=== PATIENT | female | born 1945 | race Caucasian/White ===

== ENCOUNTER 2018-02-17 10:08 | Emergency (ER) | payer MEDICARE, OTHER ==
--- NOTE | 2018-02-17 11:45 | EDM.PDOC ---
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, on Cellcept intermittent sob at home, lives with , on O2 at home, 5 l/min at home, PO 100% here on 2 l/min NC saw Dr Ortega several days ago for nasal congestion, tx with montelukast, only took 1 tab, thinks it made her more sob BANKS walking across room, particularly if she is in a hurry to get to the bathroom slept in a chair the last several nights, could breath better no cp, no f/c/d, no n/v, no cough last labs here 3y ago with BNP [address] 8m ago with emphysematous changes with interstitial fibrosis, bronchiectasis and pneumonia vs severe bronchitis at the bases no food or drink today except 1/2 cup coffee, up at 7a PCP Yue Bower, has 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 processing technician (Sky) and manager personal today EKG wnl with SR 65, CBC neg - Related Data Allergies Allergy/AdvReac Type Severity Reaction Status Date / Time morphine AdvReac Mild Rash Verified 02/17/18 10:58 Home Meds: Home Meds Levothyroxine 300 mcg PO ACBREAKFAST 09/04/15 [History] Losartan Potassium [Cozaar] 100 mg PO DAILY 09/04/15 [History] Mycophenolate Mofetil [Cellcept] 500 mg PO BID 09/04/15 [History] Omeprazole 20 mg PO BID 09/04/15 [History] Venlafaxine HCl [Venlafaxine ER] 150 mg PO DAILY 09/04/15 [History] Triamterene/Hydrochlorothiazid [Triamterene-HCTZ 37.5-25 MG] 1 cap PO DAILY 04/25 [History] traZODone 50 mg PO BEDTIME 11/16/16 [History] Azithromycin [Zithromax] 250 mg PO DAILY #6 tab 02/17/18 [Rx] Triamcinolone Acetonide [Nasacort] 1 inh NASBOTH DAILY 02/17/18 [History] Venlafaxine HCl [Venlafaxine ER] 75 mg PO DAILY 02/17/18 [History] predniSONE 20 mg PO DAILY #5 tab 02/17/18 [Rx] Past Medical History HEENT History: Reports: Cataract, Impaired Vision, Macular Degeneration Cardiovascular History: Reports: Hypertension Respiratory History: Reports: Pulmonary Fibrosis, SOB, Other (See Below) Other Respiratory History: PULMONARY HYPERTENSION Gastrointestinal History: Reports: Hiatal Hernia Musculoskeletal History: Reports: Arthritis, Connective Tissue Disease, Osteoporosis Psychiatric History: Reports: Depression Endocrine/Metabolic History: Reports: Hypothyroidism Immunologic History: Reports: Other (See Below) Other Immunologic History: GRAVES DISEASE AND INTERSTITIAL LUNG DISEASE Dermatologic History: Reports: Other (See Below) Other Dermatologic History: ROSACEA - Past Surgical History Female Surgical History: Reports: Other (See Below) Social & Family History - Caffeine Use Caffeine Use: Reports: Coffee ED ROS GENERAL - Review of Systems Review Of Systems: See Below Constitutional: Reports: No Symptoms HEENT: Reports: No Symptoms Respiratory: Reports: Shortness of Breath. Denies: Cough Cardiovascular: Reports: No Symptoms. Denies: Chest Pain Endocrine: Reports: No Symptoms GI/Abdominal: Reports: No Symptoms : Reports: No Symptoms Musculoskeletal: Reports: No Symptoms Skin: Reports: No Symptoms Neurological: Reports: No Symptoms Psychiatric: Reports: No Symptoms Hematologic/Lymphatic: Reports: No Symptoms Immunologic: Reports: No Symptoms ED EXAM, GENERAL - Physical Exam Exam: See Below Exam Limited By: No Limitations General Appearance: Alert, WD/WN, No Apparent Distress Eye Exam: Bilateral Eye: Normal Inspection Ears: Normal External Exam, Hearing Grossly Normal Nose: Normal Inspection, Normal Mucosa, No Blood Throat/Mouth: Normal Inspection, Normal Lips, Normal Teeth, Normal Gums, Normal Oropharynx, Normal Voice, No Airway Compromise Head: Atraumatic, Normocephalic Neck: Normal Inspection, Supple, Non-Tender, Full Range of Motion Respiratory/Chest: Other (good AE, no purse lips, no retractions, no accessory muscles, a few scattered crackles at bases, no cough, no dyspnea, talks in 10- word sentences, appears comfortable) Cardiovascular: Regular Rate, Rhythm, No Edema, No Gallop, No Rub, Other (2/6 LAQUITA at LSB, quiet precordium) GI/Abdominal: Normal Bowel Sounds, Soft, Non-Tender, No Organomegaly, No Distention, No Mass Back Exam: Normal Inspection, Full Range of Motion, NT Extremities: Normal Inspection, Normal Range of Motion, Non-Tender, No Pedal Edema Neurological: Alert, Oriented, CN II-XII Intact, Normal Cognition, Normal Gait, No Motor/Sensory Deficits Psychiatric: Normal Affect, Normal Mood Skin Exam: Warm, Dry, Intact, Normal Color, No Rash Lymphatic: No Adenopathy Course - Vital Signs Last Recorded V/S: Last Vital Signs Temp 36.4 C 02/17/18 10:08 Pulse 67 02/17/18 11:21 Resp 18 02/17/18 11:21 BP 89/72 L 02/17/18 11:21 Pulse Ox 100 02/17/18 11:21 - Orders/Labs/Meds Orders: Active Orders 24 hr Category Date Time Status Oxygen Therapy Adult [Oxygen Therapy, ED] [RC] Care 02/17/18 10:08 Active ASDIRECTED Chest 2V [CR] Stat Exams 02/17/18 10:56 Taken EKG 12 Lead [EK] Routine Ther 02/17/18 10:58 Ordered Labs: Laboratory Tests 02/17/18 02/17/18 02/17/18 Range/Units 11:15 11:15 11:15 WBC 6.6 (4.5-12.0) X10-3/uL RBC 4.31 (3.23-5.20) x10(6)uL Hgb 13.0 (11.5-15.5) g/dL Hct 39.2 (30.0-51.3) % MCV 90.9 (80-96) fL MCH 30.2 (27.7-33.6) pg MCHC 33.2 (32.2-35.4) g/dL RDW 12.3 (11.5-15.5) % Plt Count 358 (125-369) X10(3)uL MPV 7.7 (7.4-10.4) fL Neut % (Auto) 71.8 (46-82) % Lymph % (Auto) 17.6 (13-37) % [place] % (Auto) 7.7 (4-12) % Eos % (Auto) 2 (1.0-5.0) % Baso % (Auto) 1 (0-2) % Neut # (Auto) 4.7 (1.6-8.3) # Lymph # (Auto) 1.2 (0.6-5.0) # [place] # (Auto) 0.5 (0.0-1.3) # Eos # (Auto) 0.2 (0.0-0.8) # Baso # (Auto) 0.0 (0.0-0.2) # Sodium 140 (135-145) mmol/L Potassium 3.9 (3.5-5.3) mmol/L Chloride 104 (100-110) mmol/L Carbon Dioxide 28 (21-32) mmol/L BUN 11 (7-18) mg/dL Creatinine 0.8 (0.55-1.02) mg/dL Est Cr Clr Drug Dosing TNP Estimated GFR (MDRD) > 60 (>60) BUN/Creatinine Ratio 13.8 (9-20) Glucose 102 (80-116) mg/dL Calcium 8.9 (8.6-10.2) mg/dL Total Bilirubin 0.5 (0.1-1.3) mg/dL AST 15 (5-25) IU/L ALT 19 (12-36) U/L Alkaline Phosphatase 65 (56-112) IU/L Troponin I < 0.017 L (<0.017-0.056) ng/mL C-Reactive Protein 0.4 L (0.5-0.9) mg/dL NT-Pro-B Natriuret Pep 532 H (<=125) pg/mL Total Protein 7.4 (6.0-8.0) g/dL Albumin 3.8 (3.2-4.6) g/dL Globulin 3.6 g/dL Albumin/Globulin Ratio 1.1 - Re-Assessments/Exams Free Text/Narrative Re-Assessment/Exam: 02/17/18 11:59 labs, CxR, EKG are all neg, BNP 532 (4.3x ULN) is c/w her R sided HF from her pul fibrosis pt may have a flare of her known bronchiectasis (seen on CT) and will give a trial of Z-Carlyle and pred 20/d x 5d [place] and has been keeping windows closed when farmers have been spraying the correia Departure - Departure Time of Disposition: 12:01 Disposition: Home, Self-Care 01 Condition: Good Clinical Impression: Bronchiectasis with (acute) exacerbation - Discharge Information Prescriptions: Azithromycin [Zithromax] 250 mg PO DAILY #6 tab predniSONE 20 mg PO DAILY #5 tab Instructions: Bronchiectasis Referrals: Christi Sandhu NP [Primary Care Provider] - Forms: ED Department Discharge Additional Instructions: For possible infection, take azithromycin 250 mg 2 tabs today, then 1 tab daily for 4 days. To open up your airways, take prednisone 20 mg 1 tab daily for 5 days. See your doctor in 5 days. Return to ED if you feel worse. - My Orders Last 24 Hours: My Active Orders 02/17/18 10:08 Oxygen Therapy Adult [Oxygen Therapy, ED] [] ASDIRECTED 02/17/18 10:56 Chest 2V [CR] Stat 02/17/18 10:58 EKG 12 Lead [EK] Routine - Assessment/Plan Last 24 Hours: My Active Orders 02/17/18 10:08 Oxygen Therapy Adult [Oxygen Therapy, ED] [] ASDIRECTED 02/17/18 10:56 Chest 2V [CR] Stat 02/17/18 10:58 EKG 12 Lead [EK] Routine
[2018-02-17 12:23] VITALS: BP 121/51
--- NOTE | 2018-02-17 12:45 | CR ---
INDICATION: Short of breath. CHEST: PA and lateral views of the chest 02/17/2018 were compared with 2014 and revealed an appearance of infiltration posteriorly, most likely in the left lower lobe but possibly minimally in the right lower lobe, compatible with patchy pneumonia - no definite pleuritis. No gross consolidating pneumonia or significant effusion could be identified. The heart is enlarged. The aorta is slightly tortuous with calcification distal portion. Diminished bone density is suggested, compatible with osteoporosis - correlate clinically. There is a mild degree of hyperaeration with prominent AP diameter, raising question of COPD, along with slightly flattened diaphragm leaf on the right. IMPRESSION: 1. Findings suggest patchy bibasilar pneumonia but should be correlated clinically. Progressive fibrosis could be present. 2. ASHD with cardiomegaly. No definite CHF. 3. Diminished bone density suggesting osteoporosis. 4. Suggestion of COPD - correlate clinically. MTDD
== END 2018-02-17 12:15 | disposition home or self-care (01) ==
LOC: FB.ED 10:08
DX: J47.1 Bronchiectasis with (acute) exacerbation (principal); I10 Essential (primary) hypertension; Z79.899 Other long term (current) drug therapy; Z88.5 Allergy status to narcotic agent
CPT/HCPCS: 36415; 71046; 80053; 83880; 84484; 85025; 86140; 93005; 99285

== ENCOUNTER 2019-02-21 11:37 | Observation (INO) | payer MEDICARE, OTHER ==
[2019-02-21] MEDS: Sodium Chloride 0.9% 10 ML Syringe FLUSH PRN ×2 (13:15→15:21)
--- NOTE | 2019-02-21 13:27 | EDM.PDOC ---
ED HPI GENERAL MEDICAL PROBLEM - General Chief Complaint: General Stated Complaint: SOB COUGH Time Seen by Provider: 02/21/19 12:53 Source of Information: Reports: Patient History Limitations: Reports: No Limitations - History of Present Illness INITIAL COMMENTS - FREE TEXT/NARRATIVE: 73-year-old female with history of interstitial lung disease, atrial fibrillation on Coumadin and CHF who reports a 6 pound weight gain since last week, increased swelling in both ankles and feet and the need to increase her oxygen from 3 L/m to 4 L/m via nasal cannula over the past 2-3 days. Apparently 2 days ago she increased her Bumex to 2 mg a day and has had good urine output but her symptoms have not improved otherwise. She was seen by the home health nurses and advised to come in for evaluation. She also reports a tightness feeling in her chest with activity and increase in her shortness of breath with activity as well. No nausea or vomiting. No fevers or chills. No abdominal pain. She reports that she has been eating and drinking normally. She has no pain. She rates her pain as a 0/10. There are no other associated signs or symptoms. There are no other modifying factors. 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: Other (see below) (Has had increase in her Bumex over the past 2 days with no apparent relief.) - Related Data Allergies Allergy/AdvReac Type Severity Reaction Status Date / Time No Known Allergies Allergy Verified 02/21/19 12:31 Home Meds: Home Meds Levothyroxine 200 mcg PO ACBREAKFAST 09/04/15 [History] Omeprazole 20 mg PO WITHDINNER 09/04/15 [History] traZODone 100 mg PO BEDTIME 11/16/16 [History] Triamcinolone Acetonide [Nasacort] 1 inh NASBOTH DAILY PRN 02/17/18 [History] Bumetanide 2 mg PO WITHDINNER 02/21/19 [History] Cholecalciferol (Vitamin D3) [Vitamin D3] 2,000 unit PO DAILY 02/21/19 [History] Levothyroxine 75 mcg PO ACBREAKFAST 02/21/19 [History] PARoxetine [Paxil] 20 mg PO BEDTIME 02/21/19 [History] Sulfamethoxazole/Trimethoprim [Sulfamethoxazole-Tmp Ds Tablet] 1 each PO MOWEFR@ 1800 02/21/19 [History] Warfarin Sodium [Jantoven] 1.25 mg PO WITHDINNER 02/21/19 [History] predniSONE 20 mg PO WITHDINNER 02/21/19 [History] Past Medical History HEENT History: Reports: Cataract, Impaired Vision, Macular Degeneration Cardiovascular History: Reports: Afib, Heart Failure, Hypertension Respiratory History: Reports: Pulmonary Fibrosis, SOB, Other (See Below) Other Respiratory History: PULMONARY HYPERTENSION; patient is on oxygen therapy at 3 L/m via nasal cannula normally but has increased to 4 L/m via nasal cannula over the past 3 days. Gastrointestinal History: Reports: Hiatal Hernia Musculoskeletal History: Reports: Arthritis, Connective Tissue Disease, Osteoporosis Psychiatric History: Reports: Depression Endocrine/Metabolic History: Reports: Hypothyroidism Hematologic History: Reports: Anticoagulation Therapy Immunologic History: Reports: Other (See Below) Other Immunologic History: GRAVES DISEASE AND INTERSTITIAL LUNG DISEASE Dermatologic History: Reports: Other (See Below) Other Dermatologic History: ROSACEA - Past Surgical History HEENT Surgical History: Reports: Cataract Surgery Cardiovascular Surgical History: Reports: Other (See Below) (Pain stripping of right lower extremity) Female Surgical History: Reports: Other (See Below) (Bladder suspension surgery) Social & Family History - Tobacco Use Smoking Status *Q: Never Smoker - Caffeine Use Caffeine Use: Reports: Coffee - Alcohol Use Alcohol Use History: Yes Alcohol Use Frequency: Weekly (2-3 times a week, 1-2 drinks) - Living Situation & Occupation Living situation: Reports: Alone Occupation: Retired ED ROS GENERAL - Review of Systems Review Of Systems: See Below Constitutional: Reports: No Symptoms HEENT: Reports: No Symptoms Respiratory: Reports: Shortness of Breath, Cough Cardiovascular: Reports: Lightheadedness Endocrine: Reports: Fatigue GI/Abdominal: Reports: No Symptoms : Reports: No Symptoms Musculoskeletal: Reports: Other (Bilateral ankle and foot swelling) Skin: Reports: No Symptoms Neurological: Reports: No Symptoms Hematologic/Lymphatic: Reports: Easy Bleeding, Easy Bruising, Other (Patient chronically anticoagulated on Coumadin.) ED EXAM, GENERAL - Physical Exam Exam: See Below Exam Limited By: No Limitations General Appearance: Alert, WD/WN, No Apparent Distress Eye Exam: Bilateral Eye: EOMI, Normal Inspection, PERRL Ears: Normal External Exam, Hearing Grossly Normal Nose: Normal Inspection, Normal Mucosa, No Blood Throat/Mouth: Normal Inspection, Normal Lips, Normal Teeth, Normal Gums, Normal Oropharynx, Normal Voice, No Airway Compromise Head: Atraumatic, Normocephalic Neck: Normal Inspection, Supple, Non-Tender, Full Range of Motion Respiratory/Chest: No Respiratory Distress, No Accessory Muscle Use, Crackles ( Bilaterally) Cardiovascular: Normal Peripheral Pulses, No JVD, Irregularly Irregular Peripheral Pulses: 2+: Radial (L), Radial (R) GI/Abdominal: Normal Bowel Sounds, Soft, Non-Tender, No Organomegaly, No Distention, No Abnormal Bruit, No Mass Back Exam: Normal Inspection Extremities: Normal Inspection, Normal Range of Motion, Non-Tender, Normal Capillary Refill, Pedal Edema Neurological: Alert, Oriented, CN II-XII Intact, Normal Cognition, No Motor/ Sensory Deficits Psychiatric: Normal Affect Skin Exam: Warm, Dry, Intact, Normal Color, No Rash Lymphatic: No Adenopathy EKG INTERPRETATION EKG Date: 02/21/19 Time: 13:20 Rhythm: A-Fib Rate (Beats/Min): 86 [place]: LAD-Left [place] Deviation P-Wave: Absent QRS: Normal ST-T: Other (Nonspecific ST-T changes) QT: Prolonged Comparison: Change From Previous EKG (A. fib is new from EKG performed on 2017, however patient has history of recent onset A. fib and is chronically anticoagulated on Coumadin for this.) EKG Interpretation Comments: Atrial fibrillation with a controlled rate of 86. There is left axis deviation. There is nonspecific ST-T changes throughout. There is a prolonged QTC. Course - Vital Signs Last Recorded V/S: Last Vital Signs Temp 36.7 C 02/21/19 15:46 Pulse 82 02/21/19 15:46 Resp 18 02/21/19 15:46 BP 109/54 L 02/21/19 15:46 Pulse Ox 100 02/21/19 16:00 - Orders/Labs/Meds Orders: Active Orders 24 hr Category Date Time Status Chest 2V [CR] Stat Exams 02/21/19 13:12 Taken Sodium Chloride 0.9% [Saline Flush] Med 02/21/19 13:10 Active 10 ml FLUSH ASDIRECTED PRN Peripheral IV Insertion Adult [OM.PC] Routine Oth 02/21/19 13:10 Ordered EKG 12 Lead [EK] Routine Ther 02/21/19 13:10 Stop Req Medication Orders Sodium Chloride (Saline Flush) 10 ml FLUSH ASDIRECTED PRN PRN Reason: Keep Vein Open Last Admin: 02/21/19 15:21 Dose: 10 ml Labs: Laboratory Tests 02/21/19 02/21/19 02/21/19 Range/Units 13:35 13:35 13:35 WBC 11.3 (4.5-12.0) X10-3/uL RBC 4.26 (3.23-5.20) x10(6)uL Hgb 13.1 (11.5-15.5) g/dL Hct 39.1 (30.0-51.3) % MCV 91.7 (80-96) fL MCH 30.8 (27.7-33.6) pg MCHC 33.6 (32.2-35.4) g/dL RDW 13.0 (11.5-15.5) % Plt Count 268 (125-369) X10(3)uL MPV 7.3 L (7.4-10.4) fL Neut % (Auto) 71.7 (46-82) % Lymph % (Auto) 18.2 (13-37) % [place] % (Auto) 5.7 (4-12) % Eos % (Auto) 3 (1.0-5.0) % Baso % (Auto) 2 (0-2) % Neut # (Auto) 8.1 (1.6-8.3) # Lymph # (Auto) 2.1 (0.6-5.0) # [place] # (Auto) 0.6 (0.0-1.3) # Eos # (Auto) 0.3 (0.0-0.8) # Baso # (Auto) 0.2 (0.0-0.2) # PT 23.6 H (8.7-11.1) INR 2.45 H (0.89-1.13) POC VBG pH (7.31-7.41) POC VBG pCO2 (41-51) mmHG POC VBG HCO3 (23-28) mmol/L POC VBG Total CO2 (24-29) mmol/L POC VBG Base Excess (-2-3) mmol/L Sodium 143 (135-145) mmol/L Potassium 3.0 L (3.5-5.3) mmol/L Chloride 103 (100-110) mmol/L Carbon Dioxide 35 H (21-32) mmol/L BUN 20 H (7-18) mg/dL Creatinine 1.0 (0.55-1.02) mg/dL Est Cr Clr Drug Dosing 36.53 mL/min Estimated GFR (MDRD) 55 L (>60) BUN/Creatinine Ratio 20.0 (9-20) Glucose 82 (80-116) mg/dL Calcium 8.3 L (8.6-10.2) mg/dL Total Bilirubin 0.5 (0.1-1.3) mg/dL AST 18 D (5-25) IU/L ALT 24 D (12-36) U/L Alkaline Phosphatase 63 (56-112) IU/L Troponin I (<0.017-0.056) ng/mL NT-Pro-B Natriuret Pep (<=125) pg/mL Total Protein 5.8 L (6.0-8.0) g/dL Albumin 3.0 L (3.2-4.6) g/dL Globulin 2.8 g/dL Albumin/Globulin Ratio 1.1 02/21/19 02/21/19 Range/Units 13:35 13:35 WBC (4.5-12.0) X10-3/uL RBC (3.23-5.20) x10(6)uL Hgb (11.5-15.5) g/dL Hct (30.0-51.3) % MCV (80-96) fL MCH (27.7-33.6) pg MCHC (32.2-35.4) g/dL RDW (11.5-15.5) % Plt Count (125-369) X10(3)uL MPV (7.4-10.4) fL Neut % (Auto) (46-82) % Lymph % (Auto) (13-37) % [place] % (Auto) (4-12) % Eos % (Auto) (1.0-5.0) % Baso % (Auto) (0-2) % Neut # (Auto) (1.6-8.3) # Lymph # (Auto) (0.6-5.0) # [place] # (Auto) (0.0-1.3) # Eos # (Auto) (0.0-0.8) # Baso # (Auto) (0.0-0.2) # PT (8.7-11.1) INR (0.89-1.13) POC VBG pH 7.34 (7.31-7.41) POC VBG pCO2 61.3 H (41-51) mmHG POC VBG HCO3 33.4 H (23-28) mmol/L POC VBG Total CO2 35 H (24-29) mmol/L POC VBG Base Excess 8 H (-2-3) mmol/L Sodium (135-145) mmol/L Potassium (3.5-5.3) mmol/L Chloride (100-110) mmol/L Carbon Dioxide (21-32) mmol/L BUN (7-18) mg/dL Creatinine (0.55-1.02) mg/dL Est Cr Clr Drug Dosing mL/min Estimated GFR (MDRD) (>60) BUN/Creatinine Ratio (9-20) Glucose (80-116) mg/dL Calcium (8.6-10.2) mg/dL Total Bilirubin (0.1-1.3) mg/dL AST (5-25) IU/L ALT (12-36) U/L Alkaline Phosphatase (56-112) IU/L Troponin I < 0.017 L (<0.017-0.056) ng/mL NT-Pro-B Natriuret Pep 2173 H* (<=125) pg/mL Total Protein (6.0-8.0) g/dL Albumin (3.2-4.6) g/dL Globulin g/dL Albumin/Globulin Ratio Meds: Medications Generic Name Dose Route Start Last Admin Trade Name Freq PRN Reason Stop Dose Admin Sodium Chloride 10 ml 02/21/19 13:10 02/21/19 15:21 Saline Flush FLUSH 10 ml ASDIRECTED PRN Administration Keep Vein Open Discontinued Medications Generic Name Dose Route Start Last Admin Trade Name Eleuterio PRN Reason Stop Dose Admin Furosemide 40 mg 02/21/19 15:12 02/21/19 15:21 Lasix IVPUSH 02/21/19 15:13 40 mg NOW ONE Administration Potassium Chloride 40 meq 02/21/19 15:12 02/21/19 15:20 Potassium Chloride Solution PO 02/21/19 15:13 40 meq ONETIME ONE Administration Potassium Chloride Confirm 02/21/19 15:23 02/21/19 16:03 Potassium Chloride Solution Administered 02/21/19 15:24 Not Given Dose 20 meq .ROUTE .[facility] ONE - Radiology Interpretation Free Text/Narrative:: chest x-ray shows increased pulmonary vascularity/decompensated CHF. - Re-Assessments/Exams Free Text/Narrative Re-Assessment/Exam: 02/21/19 15:41: Patient's chest x-ray shows evidence of decompensated CHF. Her signs and symptoms support this as well. This is in spite of the fact that she had had increase in her Bumex as an outpatient with worsening rather than improving symptoms. She has failed outpatient management of this and will need admission for IV diuresis. She will need at least a 2 midnight hospital stay to accomplish this plan of care. She was given Lasix 40 mg IV and she was also give potassium 40 mg by mouth for her low potassium to begin this treatment plan. I have discussed the patient's case with Dr. Garcia and he will admit the patient. I placed interim admission orders. I discussed this with the patient and she is in agreement with the plans for admission. Departure - Departure Time of Disposition: 15:45 Disposition: Admitted As Inpatient 67 Condition: Fair Clinical Impression: Acute decompensated heart failure, Hypokalemia, Failure of outpatient treatment - Discharge Information - My Orders Last 24 Hours: My Active Orders 02/21/19 13:10 Sodium Chloride 0.9% [Saline Flush] 10 ml FLUSH ASDIRECTED PRN Peripheral IV Insertion Adult [OM.PC] Routine EKG 12 Lead [EK] Routine 02/21/19 13:12 Chest 2V [CR] Stat - Assessment/Plan Last 24 Hours: My Active Orders 02/21/19 13:10 Sodium Chloride 0.9% [Saline Flush] 10 ml FLUSH ASDIRECTED PRN Peripheral IV Insertion Adult [OM.PC] Routine EKG 12 Lead [EK] Routine 02/21/19 13:12 Chest 2V [CR] Stat
[2019-02-21] MEDS ORDERED: Potassium Chloride 10% 20 MEQ/15 ML Soln 15 ML UD Cup PO ONE (15:12)
[2019-02-21] MEDS ORDERED: Furosemide 40 MG/4 ML VIAL IVPUSH ONE (15:12)
[2019-02-21] MEDS ORDERED: Potassium Chloride 10% 20 MEQ/15 ML Soln 15 ML UD Cup ONE (15:23)
[2019-02-21] MEDS ORDERED: Fluticasone Propionate Nasal Spray 16 GM Bottle NASBOTH PRN (17:45)
--- NOTE | 2019-02-21 17:50 | PCM.HP ---
H&P History of Present Illness - General Date of Service: 02/21/19 Admit Problem/Dx: Admission Diagnosis/Problem Admission Diagnosis/Problem Congestive heart failure Source of Information: Patient History Limitations: Reports: No Limitations - History of Present Illness Initial Comments - Free Text/Narative: This is a 73-year-old female patient with a history of CHF, atrial fibrillation , initial lung disease, pulmonary hypertension with chronic oxygen 3 L a day. She was in the hospital one month ago was diagnosed with atrial fib. Says since a little swelling in the last week she's had rubor shortness of breath and leg swelling in her legs. She is on Bumex currently. She called INR clinic and they asked her how much weight she is again this was 6 pounds so she was sent to ER. Since she was short of breath she was admitted. She is current on chronic oxygen. She has a cough when her fluid is high and it is at this time. She denies wheezing, fevers, chills, ear pain, sore throat. She denies chest pain but says her chest feels a little funny. - Related Data Allergies/Adverse Reactions: Allergies Allergy/AdvReac Type Severity Reaction Status Date / Time No Known Allergies Allergy Verified 02/21/19 12:31 Home Medications: Home Meds Levothyroxine 200 mcg PO ACBREAKFAST 09/04/15 [History] Omeprazole 20 mg PO WITHDINNER 09/04/15 [History] traZODone 100 mg PO BEDTIME 11/16/16 [History] Triamcinolone Acetonide [Nasacort] 1 inh NASBOTH DAILY PRN 02/17/18 [History] Bumetanide 2 mg PO WITHDINNER 02/21/19 [History] Cholecalciferol (Vitamin D3) [Vitamin D3] 2,000 unit PO DAILY 02/21/19 [History] Ketorolac [Acular 0.5% Ophth Soln] 1 drop EYERT TID 02/21/19 [History] Levothyroxine 75 mcg PO ACBREAKFAST 02/21/19 [History] Multivitamin with Minerals [Hair, Skin and Nails] 1 tab PO DAILY 02/21/19 [ History] Ofloxacin [Ocuflox 0.3% Ophth Soln] 1 drop EYERT TID 02/21/19 [History] PARoxetine [Paxil] 20 mg PO BEDTIME 02/21/19 [History] Sulfamethoxazole/Trimethoprim [Sulfamethoxazole-Tmp Ds Tablet] 1 each PO MOWEFR@ 1800 02/21/19 [History] Warfarin Sodium [Jantoven] 1.25 mg PO WITHDINNER 02/21/19 [History] predniSONE 20 mg PO WITHDINNER 02/21/19 [History] prednisoLONE acetate [Pred Forte 1% Ophth Susp] 1 drop EYERT TID 02/21/19 [ History] Past Medical History HEENT History: Reports: Cataract, Impaired Vision, Macular Degeneration Cardiovascular History: Reports: Afib, Heart Failure, Hypertension Other Cardiovascular History: HEART CATHETERIZATION Respiratory History: Reports: Pulmonary Fibrosis, SOB, Other (See Below) Other Respiratory History: PULMONARY HYPERTENSION; patient is on oxygen therapy at 3 L/m via nasal cannula normally but has increased to 4 L/m via nasal cannula over the past 3 days. Gastrointestinal History: Reports: Hiatal Hernia Musculoskeletal History: Reports: Arthritis, Connective Tissue Disease, Osteoporosis Psychiatric History: Reports: Depression Endocrine/Metabolic History: Reports: Hypothyroidism Hematologic History: Reports: Anticoagulation Therapy Immunologic History: Reports: Other (See Below) Other Immunologic History: GRAVES DISEASE AND INTERSTITIAL LUNG DISEASE Dermatologic History: Reports: Other (See Below) Other Dermatologic History: ROSACEA - Past Surgical History HEENT Surgical History: Reports: Cataract Surgery Cardiovascular Surgical History: Reports: Other (See Below) (Pain stripping of right lower extremity) Female Surgical History: Reports: Other (See Below) (Bladder suspension surgery) Social & Family History - Family History Family Medical History: Noncontributory - Tobacco Use Smoking Status *Q: Never Smoker Second Hand Smoke Exposure: No - Caffeine Use Caffeine Use: Reports: Coffee - Recreational Drug Use Recreational Drug Use: No - Living Situation & Occupation Living situation: Reports: Alone Occupation: Retired H&P Review of Systems - Review of Systems: Review Of Systems: See Below General: Reports: No Symptoms HEENT: Reports: No Symptoms Pulmonary: Reports: Shortness of Breath, Cough. Denies: Wheezing, Pleuritic Chest Pain, Sputum Cardiovascular: Reports: Edema. Denies: Chest Pain, Palpitations, Lightheadedness Gastrointestinal: Reports: No Symptoms Genitourinary: Reports: No Symptoms Musculoskeletal: Reports: No Symptoms Skin: Reports: No Symptoms Psychiatric: Reports: No Symptoms Neurological: Reports: No Symptoms Hematologic/Lymphatic: Reports: No Symptoms Immunologic: Reports: No Symptoms Exam - Exam Exam: See Below - Vital Signs Vital Signs: Last Vital Signs Temp 98.1 F 02/21/19 15:46 Pulse 82 02/21/19 15:46 Resp 18 02/21/19 15:46 BP 109/54 L 02/21/19 15:46 Pulse Ox 100 02/21/19 16:00 Weight: 123 lb 9 oz - Exam Quality Assessment: Supplemental Oxygen General: Alert, Oriented, Cooperative HEENT: Hearing Intact, Posterior Pharynx Clear, TMs Clear Neck: Supple, Trachea Midline. No: Lymphadenopathy, Carotid Bruit Lungs: Normal Respiratory Effort, Decreased Breath Sounds, Crackles. No: Rales , Rhonchi Cardiovascular: Regular Rate, Irregular Rhythm. No: Systolic Murmur, Diastolic Murmur GI/Abdominal Exam: Normal Bowel Sounds, Non-Tender, No Organomegaly, No Distention, No Abnormal Bruit, No Mass Extremities: Normal Inspection, Normal Range of Motion, Non-Tender, Pedal Edema Skin: Warm, Dry, Intact Neurological: Normal Speech, Normal Tone Neuro Extensive - Mental Status: Alert, Oriented x3, Normal Mood/Affect, Normal Cognition Psychiatric: Alert, Normal Affect, Normal Mood - Patient Data Lab Results Last 24 hrs: Laboratory Results - last 24 hr 02/21/19 02/21/19 02/21/19 Range/Units 13:35 13:35 13:35 WBC 11.3 (4.5-12.0) X10-3/uL RBC 4.26 (3.23-5.20) x10(6)uL Hgb 13.1 (11.5-15.5) g/dL Hct 39.1 (30.0-51.3) % MCV 91.7 (80-96) fL MCH 30.8 (27.7-33.6) pg MCHC 33.6 (32.2-35.4) g/dL RDW 13.0 (11.5-15.5) % Plt Count 268 (125-369) X10(3)uL MPV 7.3 L (7.4-10.4) fL Neut % (Auto) 71.7 (46-82) % Lymph % (Auto) 18.2 (13-37) % [place] % (Auto) 5.7 (4-12) % Eos % (Auto) 3 (1.0-5.0) % Baso % (Auto) 2 (0-2) % Neut # (Auto) 8.1 (1.6-8.3) # Lymph # (Auto) 2.1 (0.6-5.0) # [place] # (Auto) 0.6 (0.0-1.3) # Eos # (Auto) 0.3 (0.0-0.8) # Baso # (Auto) 0.2 (0.0-0.2) # PT 23.6 H (8.7-11.1) INR 2.45 H (0.89-1.13) POC VBG pH (7.31-7.41) POC VBG pCO2 (41-51) mmHG POC VBG HCO3 (23-28) mmol/L POC VBG Total CO2 (24-29) mmol/L POC VBG Base Excess (-2-3) mmol/L Sodium 143 (135-145) mmol/L Potassium 3.0 L (3.5-5.3) mmol/L Chloride 103 (100-110) mmol/L Carbon Dioxide 35 H (21-32) mmol/L BUN 20 H (7-18) mg/dL Creatinine 1.0 (0.55-1.02) mg/dL Est Cr Clr Drug Dosing 36.53 mL/min Estimated GFR (MDRD) 55 L (>60) BUN/Creatinine Ratio 20.0 (9-20) Glucose 82 (80-116) mg/dL Calcium 8.3 L (8.6-10.2) mg/dL Total Bilirubin 0.5 (0.1-1.3) mg/dL AST 18 D (5-25) IU/L ALT 24 D (12-36) U/L Alkaline Phosphatase 63 (56-112) IU/L Troponin I (<0.017-0.056) ng/mL NT-Pro-B Natriuret Pep (<=125) pg/mL Total Protein 5.8 L (6.0-8.0) g/dL Albumin 3.0 L (3.2-4.6) g/dL Globulin 2.8 g/dL Albumin/Globulin Ratio 1.1 02/21/19 02/21/19 Range/Units 13:35 13:35 WBC (4.5-12.0) X10-3/uL RBC (3.23-5.20) x10(6)uL Hgb (11.5-15.5) g/dL Hct (30.0-51.3) % MCV (80-96) fL MCH (27.7-33.6) pg MCHC (32.2-35.4) g/dL RDW (11.5-15.5) % Plt Count (125-369) X10(3)uL MPV (7.4-10.4) fL Neut % (Auto) (46-82) % Lymph % (Auto) (13-37) % [place] % (Auto) (4-12) % Eos % (Auto) (1.0-5.0) % Baso % (Auto) (0-2) % Neut # (Auto) (1.6-8.3) # Lymph # (Auto) (0.6-5.0) # [place] # (Auto) (0.0-1.3) # Eos # (Auto) (0.0-0.8) # Baso # (Auto) (0.0-0.2) # PT (8.7-11.1) INR (0.89-1.13) POC VBG pH 7.34 (7.31-7.41) POC VBG pCO2 61.3 H (41-51) mmHG POC VBG HCO3 33.4 H (23-28) mmol/L POC VBG Total CO2 35 H (24-29) mmol/L POC VBG Base Excess 8 H (-2-3) mmol/L Sodium (135-145) mmol/L Potassium (3.5-5.3) mmol/L Chloride (100-110) mmol/L Carbon Dioxide (21-32) mmol/L BUN (7-18) mg/dL Creatinine (0.55-1.02) mg/dL Est Cr Clr Drug Dosing mL/min Estimated GFR (MDRD) (>60) BUN/Creatinine Ratio (9-20) Glucose (80-116) mg/dL Calcium (8.6-10.2) mg/dL Total Bilirubin (0.1-1.3) mg/dL AST (5-25) IU/L ALT (12-36) U/L Alkaline Phosphatase (56-112) IU/L Troponin I < 0.017 L (<0.017-0.056) ng/mL NT-Pro-B Natriuret Pep 2173 H* (<=125) pg/mL Total Protein (6.0-8.0) g/dL Albumin (3.2-4.6) g/dL Globulin g/dL Albumin/Globulin Ratio Result Diagrams: 02/21/19 13:35 02/21/19 13:35 - Problem List (1) CHF (congestive heart failure) SNOMED Code(s): 53169838 ICD Code: I50.9 - HEART FAILURE, UNSPECIFIED Status: Acute Current Visit : Yes (2) Interstitial lung disease SNOMED Code(s): 427518565 ICD Code: J84.9 - INTERSTITIAL PULMONARY DISEASE, UNSPECIFIED Status: Acute Current Visit: Yes (3) Pulmonary hypertension SNOMED Code(s): 43711705 ICD Code: I27.20 - PULMONARY HYPERTENSION, UNSPECIFIED Status: Acute Current Visit: Yes (4) Palliative care status SNOMED Code(s): 677343830 ICD Code: Z51.5 - ENCOUNTER FOR PALLIATIVE CARE Status: Acute Current Visit: Yes Problem List Initiated/Reviewed/Updated: Yes Orders Last 24hrs: Active Orders 24 hr Category Date Time Status Height and Weight [RC] 0600 Care 02/21/19 15:52 Active Intake and Output [RC] QSHIFT Care 02/21/19 15:52 Active Oxygen Therapy [RC] CONTINUOUS Care 02/21/19 15:49 Active Pulse Oximetry [RC] PRN Care 02/21/19 15:46 Active Pulse Oximetry [RC] PRN Care 02/21/19 15:52 Inactive Telemetry Monitoring [Cardiac Monitoring] [RC] QSHIFT Care 02/21/19 15:58 Inactive Up ad Jany [RC] ASDIRECTED Care 02/21/19 15:46 Active Vital Signs [RC] Q4H Care 02/21/19 15:46 Active 2 Gram Sodium Diet [DIET] Diet 02/21/19 Dinner Ordered Heart Healthy Diet [DIET] Diet 02/21/19 Dinner Ordered Chest 2V [CR] Stat Exams 02/21/19 13:12 Taken Cholecalciferol (Vitamin D3) [Vitamin D3] Med 02/22/19 09:00 Active 2,000 units PO DAILY Fluticasone Propionate [Flonase] Med 02/21/19 17:45 Active 0 gm NASBOTH DAILY PRN Ketorolac [Acular 0.5% Ophth Soln] Med 02/21/19 21:00 Active 0 ml EYERT TID Levothyroxine Med 02/22/19 07:30 Active 200 mcg PO ACBREAKFAST Levothyroxine Med 02/22/19 07:30 Active 75 mcg PO ACBREAKFAST Multivitamins,Therapeutic [Thera] Med 02/22/19 09:00 Active 1 each PO DAILY Ofloxacin [Ocuflox 0.3% Ophth Soln] Med 02/21/19 21:00 Active 0 ml EYERT TID PARoxetine [Paxil] Med 02/21/19 21:00 Active 20 mg PO BEDTIME Pantoprazole [ProTONIX] Med 02/21/19 18:00 Active 40 mg PO ACBREAKFAST Sodium Chloride 0.9% [Saline Flush] Med 02/21/19 13:10 Active 10 ml FLUSH ASDIRECTED PRN Sulfamethoxazole/Trimethoprim [Septra DS] Med 02/21/19 18:00 Active 1 tab PO MOWEFR@1800 Warfarin [Coumadin] Med 02/21/19 18:00 Active 1.25 mg PO WITHDINNER predniSONE Med 02/21/19 18:00 Active 20 mg PO WITHDINNER prednisoLONE acetate [Pred Forte 1% Ophth Susp] Med 02/21/19 21:00 Active 0 ml EYERT TID traZODone Med 02/21/19 21:00 Active 100 mg PO BEDTIME Peripheral IV Insertion Adult [OM.PC] Routine Oth 02/21/19 13:10 Ordered Resuscitation Status Routine Resus Stat 02/21/19 15:46 Ordered EKG 12 Lead [EK] Routine Ther 02/21/19 13:10 Stop Req Medication Orders Cholecalciferol (Vitamin D3) 2,000 units PO DAILY JOSSUE Fluticasone Propionate (Flonase) 0 gm NASBOTH DAILY PRN PRN Reason: Allergies Ketorolac Tromethamine (Acular 0.5% Ophth Soln) 0 ml EYERT TID JOSSUE Levothyroxine Sodium (Levothyroxine) 75 mcg PO ACBREAKFAST JOSSUE Levothyroxine Sodium (Levothyroxine) 200 mcg PO ACBREAKFAST [facility] Multivitamins (Thera) 1 each PO DAILY [facility] Ofloxacin (Ocuflox 0.3% Ophth Soln) 0 ml EYERT TID [facility] Pantoprazole Sodium (Protonix) 40 mg PO ACBREAKFAST [facility] Paroxetine HCl (Paxil) 20 mg PO BEDTIME [facility] Prednisolone Acetate (Pred Forte 1% Ophth Susp) 0 ml EYERT TID [facility] Prednisone (Prednisone) 20 mg PO WITHDINNER [facility] Sodium Chloride (Saline Flush) 10 ml FLUSH ASDIRECTED PRN PRN Reason: Keep Vein Open Last Admin: 02/21/19 15:21 Dose: 10 ml Admin: 02/21/19 13:15 Dose: 10 ml Trazodone HCl (Trazodone) 100 mg PO BEDTIME [facility] Trimethoprim/Sulfamethoxazole (Septra Ds) 1 tab PO MOWEFR@1800 [facility] Warfarin Sodium (Coumadin) 1.25 mg PO WITHDINNER [facility] Assessment/Plan Comment:: 1. Admit to observation. 2. Patient was given IV Lasix in the ER. 3. Low sodium diet 4. Coumadin VTE prophylaxis. 5. Up ad jany. 6. Continue home meds 7. Supplemental potassium 8. Recheck labs including BMP in the a.m. 9. Discussed CODE STATUS. She wants to be a full code.
[2019-02-21] MEDS ORDERED: Sulfamethoxazole/Trimethoprim 800-160 MG Tab PO SCH (18:00)
[2019-02-21] MEDS ORDERED: predniSONE 20 MG Tab PO SCH (18:00)
[2019-02-21] MEDS ORDERED: Warfarin 2.5 MG Tab PO SCH (18:00)
[2019-02-21] MEDS: Pantoprazole 40 MG Tab.CR PO SCH (18:31)
[2019-02-21] MEDS ORDERED: traZODone 100 MG Tab PO SCH (21:00)
[2019-02-21] MEDS ORDERED: PARoxetine 20 MG Tab PO SCH (21:00)
[2019-02-21] MEDS: Ketorolac 0.5% Ophth Soln 3 ML Bottle EYERT SCH (21:10)
[2019-02-21] MEDS: Ofloxacin 0.3% Ophth Soln 5 ML Bottle EYERT SCH (21:11)
[2019-02-21] MEDS: prednisoLONE Acetate 1% Ophth Susp 5 ML Bottle EYERT SCH (21:13)
[2019-02-21] MEDS ORDERED: traZODone 50 MG Tab ONE (21:23)
[2019-02-21] MEDS: Potassium Chloride 20 MEQ Tab.ER PO SCH (21:24)
[2019-02-22] MEDS: Pantoprazole 40 MG Tab.CR PO SCH (06:35)
[2019-02-22] MEDS: Ketorolac 0.5% Ophth Soln 3 ML Bottle EYERT SCH ×2 (06:36→09:11)
[2019-02-22] MEDS: Ofloxacin 0.3% Ophth Soln 5 ML Bottle EYERT SCH ×2 (06:38→09:16)
[2019-02-22] MEDS ORDERED: Levothyroxine 75 MCG Tab PO SCH (07:30)
[2019-02-22 07:41] VITALS: BP 101/57
--- NOTE | 2019-02-22 08:41 | PCM.PN ---
- General Info Date of Service: 02/22/19 Admission Dx/Problem (Free Text): Patient feels better today. Less cough. She had episodes the last 30 seconds a right chest pain that went away. Her leg swelling is improved. She denies PND or orthopnea. - Patient Data Vitals - Most Recent: Last Vital Signs Temp 95.8 F 02/22/19 07:40 Pulse 78 02/22/19 07:40 Resp 18 02/22/19 07:40 BP 101/57 L 02/22/19 07:40 Pulse Ox 100 02/22/19 07:40 Weight - Most Recent: 123 lb I&O - Last 24 Hours: Intake & Output 02/21/19 02/22/19 02/22/19 22:59 06:59 14:59 Intake Total 100 50 Output Total 750 0 Balance -650 50 Lab Results Last 24 Hours: Laboratory Results - last 24 hr 02/21/19 02/21/19 02/21/19 Range/Units 13:35 13:35 13:35 WBC 11.3 (4.5-12.0) X10-3/uL RBC 4.26 (3.23-5.20) x10(6)uL Hgb 13.1 (11.5-15.5) g/dL Hct 39.1 (30.0-51.3) % MCV 91.7 (80-96) fL MCH 30.8 (27.7-33.6) pg MCHC 33.6 (32.2-35.4) g/dL RDW 13.0 (11.5-15.5) % Plt Count 268 (125-369) X10(3)uL MPV 7.3 L (7.4-10.4) fL Neut % (Auto) 71.7 (46-82) % Lymph % (Auto) 18.2 (13-37) % [place] % (Auto) 5.7 (4-12) % Eos % (Auto) 3 (1.0-5.0) % Baso % (Auto) 2 (0-2) % Neut # (Auto) 8.1 (1.6-8.3) # Lymph # (Auto) 2.1 (0.6-5.0) # [place] # (Auto) 0.6 (0.0-1.3) # Eos # (Auto) 0.3 (0.0-0.8) # Baso # (Auto) 0.2 (0.0-0.2) # PT 23.6 H (8.7-11.1) INR 2.45 H (0.89-1.13) POC VBG pH (7.31-7.41) POC VBG pCO2 (41-51) mmHG POC VBG HCO3 (23-28) mmol/L POC VBG Total CO2 (24-29) mmol/L POC VBG Base Excess (-2-3) mmol/L Sodium 143 (135-145) mmol/L Potassium 3.0 L (3.5-5.3) mmol/L Chloride 103 (100-110) mmol/L Carbon Dioxide 35 H (21-32) mmol/L BUN 20 H (7-18) mg/dL Creatinine 1.0 (0.55-1.02) mg/dL Est Cr Clr Drug Dosing 36.53 mL/min Estimated GFR (MDRD) 55 L (>60) BUN/Creatinine Ratio 20.0 (9-20) Glucose 82 (80-116) mg/dL Calcium 8.3 L (8.6-10.2) mg/dL Total Bilirubin 0.5 (0.1-1.3) mg/dL AST 18 D (5-25) IU/L ALT 24 D (12-36) U/L Alkaline Phosphatase 63 (56-112) IU/L Troponin I (<0.017-0.056) ng/mL NT-Pro-B Natriuret Pep (<=125) pg/mL Total Protein 5.8 L (6.0-8.0) g/dL Albumin 3.0 L (3.2-4.6) g/dL Globulin 2.8 g/dL Albumin/Globulin Ratio 1.1 02/21/19 02/21/19 02/22/19 Range/Units 13:35 13:35 06:30 WBC (4.5-12.0) X10-3/uL RBC (3.23-5.20) x10(6)uL Hgb (11.5-15.5) g/dL Hct (30.0-51.3) % MCV (80-96) fL MCH (27.7-33.6) pg MCHC (32.2-35.4) g/dL RDW (11.5-15.5) % Plt Count (125-369) X10(3)uL MPV (7.4-10.4) fL Neut % (Auto) (46-82) % Lymph % (Auto) (13-37) % [place] % (Auto) (4-12) % Eos % (Auto) (1.0-5.0) % Baso % (Auto) (0-2) % Neut # (Auto) (1.6-8.3) # Lymph # (Auto) (0.6-5.0) # [place] # (Auto) (0.0-1.3) # Eos # (Auto) (0.0-0.8) # Baso # (Auto) (0.0-0.2) # PT 22.4 H (8.7-11.1) INR 2.33 H (0.89-1.13) POC VBG pH 7.34 (7.31-7.41) POC VBG pCO2 61.3 H (41-51) mmHG POC VBG HCO3 33.4 H (23-28) mmol/L POC VBG Total CO2 35 H (24-29) mmol/L POC VBG Base Excess 8 H (-2-3) mmol/L Sodium (135-145) mmol/L Potassium (3.5-5.3) mmol/L Chloride (100-110) mmol/L Carbon Dioxide (21-32) mmol/L BUN (7-18) mg/dL Creatinine (0.55-1.02) mg/dL Est Cr Clr Drug Dosing mL/min Estimated GFR (MDRD) (>60) BUN/Creatinine Ratio (9-20) Glucose (80-116) mg/dL Calcium (8.6-10.2) mg/dL Total Bilirubin (0.1-1.3) mg/dL AST (5-25) IU/L ALT (12-36) U/L Alkaline Phosphatase (56-112) IU/L Troponin I < 0.017 L (<0.017-0.056) ng/mL NT-Pro-B Natriuret Pep 2173 H* (<=125) pg/mL Total Protein (6.0-8.0) g/dL Albumin (3.2-4.6) g/dL Globulin g/dL Albumin/Globulin Ratio 02/22/19 Range/Units 06:30 WBC (4.5-12.0) X10-3/uL RBC (3.23-5.20) x10(6)uL Hgb (11.5-15.5) g/dL Hct (30.0-51.3) % MCV (80-96) fL MCH (27.7-33.6) pg MCHC (32.2-35.4) g/dL RDW (11.5-15.5) % Plt Count (125-369) X10(3)uL MPV (7.4-10.4) fL Neut % (Auto) (46-82) % Lymph % (Auto) (13-37) % [place] % (Auto) (4-12) % Eos % (Auto) (1.0-5.0) % Baso % (Auto) (0-2) % Neut # (Auto) (1.6-8.3) # Lymph # (Auto) (0.6-5.0) # [place] # (Auto) (0.0-1.3) # Eos # (Auto) (0.0-0.8) # Baso # (Auto) (0.0-0.2) # PT (8.7-11.1) INR (0.89-1.13) POC VBG pH (7.31-7.41) POC VBG pCO2 (41-51) mmHG POC VBG HCO3 (23-28) mmol/L POC VBG Total CO2 (24-29) mmol/L POC VBG Base Excess (-2-3) mmol/L Sodium 145 (135-145) mmol/L Potassium 4.4 D (3.5-5.3) mmol/L Chloride 106 (100-110) mmol/L Carbon Dioxide 31 (21-32) mmol/L BUN 20 H (7-18) mg/dL Creatinine 1.0 (0.55-1.02) mg/dL Est Cr Clr Drug Dosing 36.53 mL/min Estimated GFR (MDRD) 55 L (>60) BUN/Creatinine Ratio 20.0 (9-20) Glucose 126 H (80-116) mg/dL Calcium 8.6 (8.6-10.2) mg/dL Total Bilirubin (0.1-1.3) mg/dL AST (5-25) IU/L ALT (12-36) U/L Alkaline Phosphatase (56-112) IU/L Troponin I (<0.017-0.056) ng/mL NT-Pro-B Natriuret Pep (<=125) pg/mL Total Protein (6.0-8.0) g/dL Albumin (3.2-4.6) g/dL Globulin g/dL Albumin/Globulin Ratio Med Orders - Current: Current Medications Fluticasone Propionate (Flonase) 0 gm NASBOTH DAILY PRN PRN Reason: Allergies Ketorolac Tromethamine (Acular 0.5% Ophth Soln) 0 ml EYERT TID [facility] Last Admin: 02/22/19 06:36 Dose: 1 drop Levothyroxine Sodium (Levothyroxine) 75 mcg PO ACBREAKFAST [facility] Last Admin: 02/22/19 06:35 Dose: 75 mcg Levothyroxine Sodium (Levothyroxine) 200 mcg PO ACBREAKFAST [facility] Last Admin: 02/22/19 06:35 Dose: 200 mcg Multivitamins (Thera) 1 each PO DAILY [facility] Vitamin D 2,000 (Units *Ptom) 0 each PO DAILY [facility] Ofloxacin (Ocuflox 0.3% Ophth Soln) 0 ml EYERT TID [facility] Last Admin: 02/22/19 06:38 Dose: 1 drop Pantoprazole Sodium (Protonix) 40 mg PO ACBREAKFAST [facility] Last Admin: 02/22/19 06:35 Dose: 40 mg Paroxetine HCl (Paxil) 20 mg PO BEDTIME [facility] Last Admin: 02/21/19 21:24 Dose: 20 mg Potassium Chloride (Klor-Con M20) 20 meq PO TID [facility] Last Admin: 02/21/19 21:24 Dose: 20 meq Prednisolone Acetate (Pred Forte 1% Ophth Susp) 0 ml EYERT TID [facility] Last Admin: 02/21/19 21:13 Dose: 1 drop Prednisone (Prednisone) 20 mg PO WITHDINNER [facility] Last Admin: 02/21/19 18:31 Dose: 20 mg Sodium Chloride (Saline Flush) 10 ml FLUSH ASDIRECTED PRN PRN Reason: Keep Vein Open Last Admin: 02/21/19 15:21 Dose: 10 ml Trazodone HCl (Trazodone) 100 mg PO BEDTIME [facility] Last Admin: 02/21/19 21:26 Dose: 100 mg Trimethoprim/Sulfamethoxazole (Septra Ds) 1 tab PO MOWEFR@1800 [facility] Last Admin: 02/21/19 18:31 Dose: 1 tab Warfarin Sodium (Coumadin) 1.25 mg PO WITHDINNER [facility] Last Admin: 02/21/19 18:31 Dose: 1.25 mg Discontinued Medications Furosemide (Lasix) 40 mg IVPUSH NOW ONE Stop: 02/21/19 15:13 Last Admin: 02/21/19 15:21 Dose: 40 mg Potassium Chloride (Potassium Chloride Solution) 40 meq PO ONETIME ONE Stop: 02/21/19 15:13 Last Admin: 02/21/19 15:20 Dose: 40 meq Potassium Chloride (Potassium Chloride Solution) Confirm Administered Dose 20 meq .ROUTE .STK-MED ONE Stop: 02/21/19 15:24 Last Admin: 02/21/19 16:03 Dose: Not Given Trazodone HCl (Trazodone) Confirm Administered Dose 100 mg .ROUTE .STK-MED ONE Stop: 02/21/19 21:24 Last Admin: 02/21/19 21:27 Dose: Not Given - Exam General: Alert, Oriented, Cooperative Lungs: Clear to Auscultation, Crackles ({) Cardiovascular: Regular Rate, Irregular Rhythm. No: Murmurs Extremities: No: Pedal Edema Psy/Mental Status: Alert, Normal Affect, Normal Mood - Problem List & Annotations (1) CHF (congestive heart failure) SNOMED Code(s): 72789999 Code(s): I50.9 - HEART FAILURE, UNSPECIFIED Status: Acute Current Visit: Yes (2) Interstitial lung disease SNOMED Code(s): 417736079 Code(s): J84.9 - INTERSTITIAL PULMONARY DISEASE, UNSPECIFIED Status: Acute Current Visit: Yes (3) Pulmonary hypertension SNOMED Code(s): 04053834 Code(s): I27.20 - PULMONARY HYPERTENSION, UNSPECIFIED Status: Acute Current Visit: Yes (4) Palliative care status SNOMED Code(s): 736137466 Code(s): Z51.5 - ENCOUNTER FOR PALLIATIVE CARE Status: Acute Current Visit: Yes - Problem List Review Problem List Initiated/Reviewed/Updated: Yes - My Orders Last 24 Hours: My Active Orders 02/21/19 17:45 Fluticasone Propionate [Flonase] 0 gm NASBOTH DAILY PRN 02/21/19 17:51 Admission Status [Patient Status] [ADT] Routine 02/21/19 18:00 Pantoprazole [ProTONIX] 40 mg PO ACBREAKFAST Sulfamethoxazole/Trimethoprim [Septra DS] 1 tab PO [id number] Warfarin [Coumadin] 1.25 mg PO WITHDINNER predniSONE 20 mg PO WITHDINNER 02/21/19 21:00 Ketorolac [Acular 0.5% Ophth Soln] 0 ml EYERT TID Ofloxacin [Ocuflox 0.3% Ophth Soln] 0 ml EYERT TID PARoxetine [Paxil] 20 mg PO BEDTIME Potassium Chloride [Klor-Con M20] 20 meq PO TID prednisoLONE acetate [Pred Forte 1% Ophth Susp] 0 ml EYERT TID traZODone 100 mg PO BEDTIME 02/22/19 07:30 Levothyroxine 200 mcg PO ACBREAKFAST Levothyroxine 75 mcg PO ACBREAKFAST 02/22/19 09:00 Multivitamins,Therapeutic [Thera] 1 each PO DAILY Non-Formulary Medication [NF Drug] 0 each PO DAILY 02/23/19 06:00 INR,PT,PROTHROMBIN TIME [COAG] DAILY 02/24/19 06:00 INR,PT,PROTHROMBIN TIME [COAG] DAILY 02/25/19 06:00 INR,PT,PROTHROMBIN TIME [COAG] DAILY - Plan Plan:: 1. Discharge to home today. 2. Increase Bumex to 2 mg a day. 3. Have her recheck with her primary tomorrow and get her on daily weights and follow her closely to try to avoid hospitalization
--- NOTE | 2019-02-22 08:46 | PCM.DCSUM1 ---
Discharge Summary - Hospital Course Free Text/Narrative:: Hospital course-patient's potassium is low should and she was given IV potassium and then potassium 20 mg 3 times a day. She'll he really got 1 dose of that in the evening besides the IV. She was given IV 40 mg of Lasix in the ER. By the time I saw her was 6:00 so we didn't repeat it. By the morning she lost over 3 pounds leg swelling was down and her cough and breathing are much improved. She says she had a little chest pain in the evening that lasted like a minute on the right side. Potassium was corrected by the a.m. We'll discharge her home on 2 mg of pubic which is twice the dose she was taking. We'll get her into the clinic tomorrow employer into the health job [employer] to monitor her weights until she becomes stable to try to avoid hospitalization. Brief History: This is a 73-year-old female patient with a history of CHF, atrial fibrillation, initial lung disease, pulmonary hypertension with chronic oxygen 3 L a day. She was in the hospital one month ago was diagnosed with atrial fib. Says since a little swelling in the last week she's had rubor shortness of breath and leg swelling in her legs. She is on Bumex currently. She called INR clinic and they asked her how much weight she is again this was 6 pounds so she was sent to ER. Since she was short of breath she was admitted. She is current on chronic oxygen. She has a cough when her fluid is high and it is at this time. She denies wheezing, fevers, chills, ear pain, sore throat. She denies chest pain but says her chest feels a little funny. Diagnosis: Stroke: No - Discharge Data Discharge Date: 02/22/19 Discharge Disposition: Home, Self-Care 01 Condition: Stable - Discharge Diagnosis/Problem(s) (1) CHF (congestive heart failure) SNOMED Code(s): 81069876 ICD Code: I50.9 - HEART FAILURE, UNSPECIFIED Status: Acute Current Visit : Yes (2) Interstitial lung disease SNOMED Code(s): 074431014 ICD Code: J84.9 - INTERSTITIAL PULMONARY DISEASE, UNSPECIFIED Status: Acute Current Visit: Yes (3) Pulmonary hypertension SNOMED Code(s): 86377458 ICD Code: I27.20 - PULMONARY HYPERTENSION, UNSPECIFIED Status: Acute Current Visit: Yes (4) Palliative care status SNOMED Code(s): 502848029 ICD Code: Z51.5 - ENCOUNTER FOR PALLIATIVE CARE Status: Acute Current Visit: Yes - Patient Instructions Diet: Low Sodium Activity: As Tolerated Driving: May Drive Today Showering/Bathing: May Shower Other/Special Instructions: 1. Recheck with Christi Sandhu NP tomorrow. 2. Evaluate. She is to call the clinic if she gains 5 pounds. - Discharge Plan Prescriptions/Med Rec: Bumetanide [Bumex] 2 mg PO DAILY #30 tab Home Medications: Home Meds Levothyroxine 200 mcg PO ACBREAKFAST 09/04/15 [History] Omeprazole 20 mg PO WITHDINNER 09/04/15 [History] traZODone 100 mg PO BEDTIME 11/16/16 [History] Triamcinolone Acetonide [Nasacort] 1 inh NASBOTH DAILY PRN 02/17/18 [History] Cholecalciferol (Vitamin D3) [Vitamin D3] 2,000 unit PO DAILY 02/21/19 [History] Ketorolac [Acular 0.5% Ophth Soln] 1 drop EYERT TID 02/21/19 [History] Levothyroxine 75 mcg PO ACBREAKFAST 02/21/19 [History] Multivitamin with Minerals [Hair, Skin and Nails] 1 tab PO DAILY 02/21/19 [ History] Ofloxacin [Ocuflox 0.3% Ophth Soln] 1 drop EYERT TID 02/21/19 [History] PARoxetine [Paxil] 20 mg PO BEDTIME 02/21/19 [History] Sulfamethoxazole/Trimethoprim [Sulfamethoxazole-Tmp Ds Tablet] 1 each PO MOWEFR@ 1800 02/21/19 [History] Warfarin Sodium [Jantoven] 1.25 mg PO WITHDINNER 02/21/19 [History] predniSONE 20 mg PO WITHDINNER 02/21/19 [History] prednisoLONE acetate [Pred Forte 1% Ophth Susp] 1 drop EYERT TID 02/21/19 [ History] Bumetanide [Bumex] 2 mg PO DAILY #30 tab 02/22/19 [Rx] Forms: ED Department Discharge Referrals: Christi Sandhu NP [Primary Care Provider] - - Discharge Summary/Plan Comment DC Time >30 min.: No - Patient Data Vitals - Most Recent: Last Vital Signs Temp 95.8 F 02/22/19 07:40 Pulse 78 02/22/19 07:40 Resp 18 02/22/19 07:40 BP 101/57 L 02/22/19 07:40 Pulse Ox 100 02/22/19 07:40 Weight - Most Recent: 123 lb I&O - Last 24 hours: Intake & Output 02/21/19 02/22/19 02/22/19 22:59 06:59 14:59 Intake Total 100 50 Output Total 750 0 Balance -650 50 Lab Results - Last 24 hrs: Laboratory Results - last 24 hr 02/21/19 02/21/19 02/21/19 Range/Units 13:35 13:35 13:35 WBC 11.3 (4.5-12.0) X10-3/uL RBC 4.26 (3.23-5.20) x10(6)uL Hgb 13.1 (11.5-15.5) g/dL Hct 39.1 (30.0-51.3) % MCV 91.7 (80-96) fL MCH 30.8 (27.7-33.6) pg MCHC 33.6 (32.2-35.4) g/dL RDW 13.0 (11.5-15.5) % Plt Count 268 (125-369) X10(3)uL MPV 7.3 L (7.4-10.4) fL Neut % (Auto) 71.7 (46-82) % Lymph % (Auto) 18.2 (13-37) % Charles % (Auto) 5.7 (4-12) % Eos % (Auto) 3 (1.0-5.0) % Baso % (Auto) 2 (0-2) % Neut # (Auto) 8.1 (1.6-8.3) # Lymph # (Auto) 2.1 (0.6-5.0) # Charles # (Auto) 0.6 (0.0-1.3) # Eos # (Auto) 0.3 (0.0-0.8) # Baso # (Auto) 0.2 (0.0-0.2) # PT 23.6 H (8.7-11.1) INR 2.45 H (0.89-1.13) POC VBG pH (7.31-7.41) POC VBG pCO2 (41-51) mmHG POC VBG HCO3 (23-28) mmol/L POC VBG Total CO2 (24-29) mmol/L POC VBG Base Excess (-2-3) mmol/L Sodium 143 (135-145) mmol/L Potassium 3.0 L (3.5-5.3) mmol/L Chloride 103 (100-110) mmol/L Carbon Dioxide 35 H (21-32) mmol/L BUN 20 H (7-18) mg/dL Creatinine 1.0 (0.55-1.02) mg/dL Est Cr Clr Drug Dosing 36.53 mL/min Estimated GFR (MDRD) 55 L (>60) BUN/Creatinine Ratio 20.0 (9-20) Glucose 82 (80-116) mg/dL Calcium 8.3 L (8.6-10.2) mg/dL Total Bilirubin 0.5 (0.1-1.3) mg/dL AST 18 D (5-25) IU/L ALT 24 D (12-36) U/L Alkaline Phosphatase 63 (56-112) IU/L Troponin I (<0.017-0.056) ng/mL NT-Pro-B Natriuret Pep (<=125) pg/mL Total Protein 5.8 L (6.0-8.0) g/dL Albumin 3.0 L (3.2-4.6) g/dL Globulin 2.8 g/dL Albumin/Globulin Ratio 1.1 02/21/19 02/21/19 02/22/19 Range/Units 13:35 13:35 06:30 WBC (4.5-12.0) X10-3/uL RBC (3.23-5.20) x10(6)uL Hgb (11.5-15.5) g/dL Hct (30.0-51.3) % MCV (80-96) fL MCH (27.7-33.6) pg MCHC (32.2-35.4) g/dL RDW (11.5-15.5) % Plt Count (125-369) X10(3)uL MPV (7.4-10.4) fL Neut % (Auto) (46-82) % Lymph % (Auto) (13-37) % Charles % (Auto) (4-12) % Eos % (Auto) (1.0-5.0) % Baso % (Auto) (0-2) % Neut # (Auto) (1.6-8.3) # Lymph # (Auto) (0.6-5.0) # Charles # (Auto) (0.0-1.3) # Eos # (Auto) (0.0-0.8) # Baso # (Auto) (0.0-0.2) # PT 22.4 H (8.7-11.1) INR 2.33 H (0.89-1.13) POC VBG pH 7.34 (7.31-7.41) POC VBG pCO2 61.3 H (41-51) mmHG POC VBG HCO3 33.4 H (23-28) mmol/L POC VBG Total CO2 35 H (24-29) mmol/L POC VBG Base Excess 8 H (-2-3) mmol/L Sodium (135-145) mmol/L Potassium (3.5-5.3) mmol/L Chloride (100-110) mmol/L Carbon Dioxide (21-32) mmol/L BUN (7-18) mg/dL Creatinine (0.55-1.02) mg/dL Est Cr Clr Drug Dosing mL/min Estimated GFR (MDRD) (>60) BUN/Creatinine Ratio (9-20) Glucose (80-116) mg/dL Calcium (8.6-10.2) mg/dL Total Bilirubin (0.1-1.3) mg/dL AST (5-25) IU/L ALT (12-36) U/L Alkaline Phosphatase (56-112) IU/L Troponin I < 0.017 L (<0.017-0.056) ng/mL NT-Pro-B Natriuret Pep 2173 H* (<=125) pg/mL Total Protein (6.0-8.0) g/dL Albumin (3.2-4.6) g/dL Globulin g/dL Albumin/Globulin Ratio 02/22/19 Range/Units 06:30 WBC (4.5-12.0) X10-3/uL RBC (3.23-5.20) x10(6)uL Hgb (11.5-15.5) g/dL Hct (30.0-51.3) % MCV (80-96) fL MCH (27.7-33.6) pg MCHC (32.2-35.4) g/dL RDW (11.5-15.5) % Plt Count (125-369) X10(3)uL MPV (7.4-10.4) fL Neut % (Auto) (46-82) % Lymph % (Auto) (13-37) % Charles % (Auto) (4-12) % Eos % (Auto) (1.0-5.0) % Baso % (Auto) (0-2) % Neut # (Auto) (1.6-8.3) # Lymph # (Auto) (0.6-5.0) # Charles # (Auto) (0.0-1.3) # Eos # (Auto) (0.0-0.8) # Baso # (Auto) (0.0-0.2) # PT (8.7-11.1) INR (0.89-1.13) POC VBG pH (7.31-7.41) POC VBG pCO2 (41-51) mmHG POC VBG HCO3 (23-28) mmol/L POC VBG Total CO2 (24-29) mmol/L POC VBG Base Excess (-2-3) mmol/L Sodium 145 (135-145) mmol/L Potassium 4.4 D (3.5-5.3) mmol/L Chloride 106 (100-110) mmol/L Carbon Dioxide 31 (21-32) mmol/L BUN 20 H (7-18) mg/dL Creatinine 1.0 (0.55-1.02) mg/dL Est Cr Clr Drug Dosing 36.53 mL/min Estimated GFR (MDRD) 55 L (>60) BUN/Creatinine Ratio 20.0 (9-20) Glucose 126 H (80-116) mg/dL Calcium 8.6 (8.6-10.2) mg/dL Total Bilirubin (0.1-1.3) mg/dL AST (5-25) IU/L ALT (12-36) U/L Alkaline Phosphatase (56-112) IU/L Troponin I (<0.017-0.056) ng/mL NT-Pro-B Natriuret Pep (<=125) pg/mL Total Protein (6.0-8.0) g/dL Albumin (3.2-4.6) g/dL Globulin g/dL Albumin/Globulin Ratio Med Orders - Current: Current Medications Fluticasone Propionate (Flonase) 0 gm NASBOTH DAILY PRN PRN Reason: Allergies Ketorolac Tromethamine (Acular 0.5% Ophth Soln) 0 ml EYERT TID [facility] Last Admin: 02/22/19 06:36 Dose: 1 drop Levothyroxine Sodium (Levothyroxine) 75 mcg PO ACBREAKFAST [facility] Last Admin: 02/22/19 06:35 Dose: 75 mcg Levothyroxine Sodium (Levothyroxine) 200 mcg PO ACBREAKFAST [facility] Last Admin: 02/22/19 06:35 Dose: 200 mcg Multivitamins (Thera) 1 each PO DAILY [facility] Vitamin D 2,000 (Units *Ptom) 0 each PO DAILY [facility] Ofloxacin (Ocuflox 0.3% Ophth Soln) 0 ml EYERT TID [facility] Last Admin: 02/22/19 06:38 Dose: 1 drop Pantoprazole Sodium (Protonix) 40 mg PO ACBREAKFAST [facility] Last Admin: 02/22/19 06:35 Dose: 40 mg Paroxetine HCl (Paxil) 20 mg PO BEDTIME [facility] Last Admin: 02/21/19 21:24 Dose: 20 mg Potassium Chloride (Klor-Con M20) 20 meq PO TID [facility] Last Admin: 02/21/19 21:24 Dose: 20 meq Prednisolone Acetate (Pred Forte 1% Ophth Susp) 0 ml EYERT TID [facility] Last Admin: 02/21/19 21:13 Dose: 1 drop Prednisone (Prednisone) 20 mg PO WITHDINNER [facility] Last Admin: 02/21/19 18:31 Dose: 20 mg Sodium Chloride (Saline Flush) 10 ml FLUSH ASDIRECTED PRN PRN Reason: Keep Vein Open Last Admin: 02/21/19 15:21 Dose: 10 ml Trazodone HCl (Trazodone) 100 mg PO BEDTIME [facility] Last Admin: 02/21/19 21:26 Dose: 100 mg Trimethoprim/Sulfamethoxazole (Septra Ds) 1 tab PO MOWEFR@1800 [facility] Last Admin: 02/21/19 18:31 Dose: 1 tab Warfarin Sodium (Coumadin) 1.25 mg PO WITHDINNER [facility] Last Admin: 02/21/19 18:31 Dose: 1.25 mg Discontinued Medications Furosemide (Lasix) 40 mg IVPUSH NOW ONE Stop: 02/21/19 15:13 Last Admin: 02/21/19 15:21 Dose: 40 mg Potassium Chloride (Potassium Chloride Solution) 40 meq PO ONETIME ONE Stop: 02/21/19 15:13 Last Admin: 02/21/19 15:20 Dose: 40 meq Potassium Chloride (Potassium Chloride Solution) Confirm Administered Dose 20 meq .ROUTE .STK-MED ONE Stop: 02/21/19 15:24 Last Admin: 02/21/19 16:03 Dose: Not Given Trazodone HCl (Trazodone) Confirm Administered Dose 100 mg .ROUTE .STK-MED ONE Stop: 02/21/19 21:24 Last Admin: 02/21/19 21:27 Dose: Not Given
[2019-02-22] MEDS ORDERED: VITAMIN D 2000 UNIT PO SCH (09:00)
[2019-02-22] MEDS ORDERED: Multivitamins,Therapeutic Tab PO SCH (09:00)
[2019-02-22] MEDS: Potassium Chloride 20 MEQ Tab.ER PO SCH (09:12)
[2019-02-22] MEDS: prednisoLONE Acetate 1% Ophth Susp 5 ML Bottle EYERT SCH (09:16)
== END 2019-02-22 11:00 | disposition home or self-care (01) ==
LOC: FB.ED 11:37 → FB.MS 15:46 → UNDOADMOB 15:46 → FB.MS 15:46 → INTOOBSV 15:46
PROVIDERS: ADMIT Family Medicine; ATTEND Family Medicine
DX: I50.9 Heart failure, unspecified (principal); E87.6 Hypokalemia; J84.9 Interstitial pulmonary disease, unspecified; I27.20 Pulmonary hypertension, unspecified; Z51.5 Encounter for palliative care; E03.9 Hypothyroidism, unspecified; Z99.81 Dependence on supplemental oxygen; Z79.899 Other long term (current) drug therapy; Z79.01 Long term (current) use of anticoagulants
CPT/HCPCS: 36415; 71046; 80048; 80053; 82803; 83880; 84484; 85025; 85610; 93005; 96374; 99285; A9270; J1940